=== PATIENT | male | born 1990 | race Caucasian/White ===

== ENCOUNTER 2017-10-24 17:47 | Emergency (ER) | payer OTHER ==
[2017-10-24 19:46] LABS: BASOPHILS # (AUTO) 0.1 10^3/uL (0.0-0.1); BASOPHILS % (AUTO) 1.1 %; EOSINOPHILS # (AUTO) 0.1 10^3/uL (0.0-0.7); EOSINOPHILS % (AUTO) 0.8 %; HGB - HEMOGLOBIN 14.8 g/dL (14.0-18.0); LYMPHOCYTES # (AUTO) 2.1 10^3/uL (1.5-3.5); LYMPHOCYTES % (AUTO) 24.9 %; MEAN CORPUSCULAR HEMOGLOBIN 29.9 pg (27.0-31.0); MEAN CORPUSCULAR HGB CONC 34.4 g/dL (32.0-36.0); MEAN CORPUSCULAR VOLUME 87.1 fL (80.0-94.0); MONOCYTES # (AUTO) 0.7 10^3/uL (0.0-1.0); NEUTROPHILS # (AUTO) 5.5 10^3/uL (1.5-6.6); NEUTROPHILS % (AUTO) 65.2 %; RED BLOOD COUNT 4.94 10^6/uL (4.70-6.10); RED CELL DISTRIBUTION WIDTH 12.8 % (12.0-15.0); WHITE BLOOD COUNT 8.4 x10^3/uL (4.8-10.8)
--- NOTE | 2017-10-24 19:48 | ED Physician Documentation ---
PD HPI CHEST PAIN - Stated complaint Stated Complaint: CHEST PX/NUMBNESS - Chief complaint Chief Complaint: Cardiac - History obtained from History obtained from: Patient - History of Present Illness Timing - onset: How many hours ago (2), Today Timing - onset during: Light activity. No: Exertion, Emotional event Timing - duration: Hours (2) Timing - details: Abrupt onset, Still present Quality: Aching, Sharp, Pain Location: Left chest Radiation: No: Neck, Back, Left upper extremity Improved by: No: Rest Worsened by: Inspiration, Movement. No: Palpation, Position Associated symptoms: Shortness of air. No: Nausea, Feeling faint / dizzy, General Weakness, Palpitations, Cough Similar symptoms before: No diagnosis (has not had pains there but has had similar at lower rib margin in the past, Dx as cartilage inflammation.) Recently seen: Not recently seen Review of Systems Constitutional: denies: Fever, Chills Nose: denies: Rhinorrhea / runny nose, Congestion Throat: denies: Sore throat Cardiac: denies: Palpitations, Pedal edema, Calf pain Respiratory: denies: Dyspnea, Cough, Wheezing GI: denies: Abdominal Pain, Nausea, Vomiting, Diarrhea Skin: denies: Rash, Lesions PD PAST MEDICAL HISTORY - Past Medical History Past Medical History: Yes Psych: Depression, Anxiety - Past Surgical History Past Surgical History: No - Present Medications Home Medications: Ambulatory Orders Medication Instructions Recorded Confirmed No Known Home Medications [No 10/24/17 10/24/17 Known Home Medications] - Allergies Allergies/Adverse Reactions: Allergies Allergy/AdvReac Type Severity Reaction Status Date / Time No Known Drug Allergies Allergy Verified 10/24/17 18:06 - Social History Does the pt smoke?: Yes Smoking Status: Current every day smoker - Family History Family history: reports: Non contributory. denies: CAD, Aortic aneursym, Aortic dissection PD ED PE NORMAL - Vitals Vital signs reviewed: Yes - General General: Alert and oriented X 3, No acute distress, Well developed/nourished - HEENT HEENT: Pharynx benign - Neck Neck: Supple, no meningeal sign, No adenopathy - Cardiac Cardiac: RRR, No murmur - Respiratory Respiratory: Clear bilaterally, Other (some chest wall tenderness left sternal border upper aspect. No rash nor sores. ) - Abdomen Abdomen: Soft, Non tender - Back Back: No CVA TTP - Derm Derm: Normal color, Warm and dry, No rash - Extremities Extremities: No deformity, No tenderness to palpate, No edema, No calf tenderness / cord - Neuro Neuro: Alert and oriented X 3, No motor deficit, Normal speech Results - Vitals Vitals: Oxygen O2 Source Room air - EKG (time done) 17:53 Rate: Rate (enter#) (76) Rhythm: NSR Hulbert: Normal Intervals: Normal MI QRS: Normal Ischemia: Normal ST segments. No: ST elevation c/w ischemia, ST depression - Labs Labs: Laboratory Tests 10/24/17 10/24/17 10/24/17 19:28 19:28 19:28 WBC 8.4 RBC 4.94 Hgb 14.8 Hct 43.0 MCV 87.1 MCH 29.9 MCHC 34.4 RDW 12.8 Plt Count 237 MPV 8.6 Neut # 5.5 Lymph # 2.1 Fleming # 0.7 Eos # 0.1 Baso # 0.1 Absolute Nucleated RBC 0.01 Nucleated RBC % 0.1 Manual Slide Review Indicated Platelet Estimate NORMAL (130-450,000) Platelet Morphology 1+ LARGE PLATELETS RBC Morph Micro Appear NORMAL APPEARANCE Sodium 135 Potassium 3.6 Chloride 101 Carbon Dioxide 26 Anion Gap 8.0 BUN 12 Creatinine 1.1 Estimated GFR (MDRD) 80 L Glucose 100 Calcium 9.1 Total Bilirubin 0.4 AST 32 ALT 49 Alkaline Phosphatase 81 Troponin I < 0.04 Total Protein 7.6 Albumin 4.6 Globulin 3.0 Albumin/Globulin Ratio 1.5 Lipase 15 L PD MEDICAL DECISION MAKING - ED course Complexity details: considered differential (has some tenderness of chest wall and ECG/CXR/labs are good. Given demographics, unlikely to be vascular. Presume some costochondritis. ), d/w patient Departure - Departure Disposition: 01 Home, Self Care Clinical Impression: Left sided chest pain Condition: Stable Record reviewed to determine appropriate education?: Yes Instructions: ED Chest Pain Atypical Unkn Cause, ED Chest Pain Costochondritis Comments: Drink lots of fluids. Ibuprofen or naproxen twice daily if needed for the pains presuming some inflammation in the chest wall and cartilage. Recheck if other symptoms develop as well. Your EKG, chest x-ray, blood tests are appearing okay. Discharge Date/Time: 10/24/17 20:17
[2017-10-24 19:52] LABS: ALBUMIN 4.6 g/dL (3.2-5.5); BILIRUBIN,TOTAL 0.4 mg/dL (0.2-1.0); CALCIUM 9.1 mg/dL (8.5-10.3); CREATININE 1.1 mg/dL (0.6-1.2); TOTAL PROTEIN 7.6 g/dL (6.7-8.2)
[2017-10-24 19:53] LABS: ALBUMIN/GLOBULIN RATIO 1.5 (1.0-2.2)
[2017-10-24 20:19] VITALS: BP 138/84
[2017-10-24 20:32] LABS: MEAN PLATELET VOLUME 8.6 fL (7.4-11.4); PLATELET ESTIMATE, MANUAL NORMAL (130-450,000) (NORMAL); PLATELET MORPHOLOGY 1+ LARGE PLATELETS (NORMAL); PLT - PLATELET COUNT 237 10^3/uL (130-450); RBC MORPHOLOGY (MULTIPLE) NORMAL APPEARANCE (NORMAL)
--- NOTE | 2017-10-24 20:50 | XRAY Report ---
EXAM: CHEST RADIOGRAPHY EXAM DATE: 10/24/2017 07:26 PM. CLINICAL HISTORY: Chest pain. COMPARISON: 01/17/2006. TECHNIQUE: 2 views. FINDINGS: Lungs/Pleura: Grossly clear lungs. A monitoring lead projects over the upper right chest. No pleural effusion or pneumothorax. Mediastinum: Heart and mediastinal contours are unremarkable. Other: No fracture evident. IMPRESSION: 1. No acute cardiopulmonary findings identified. [facility] Referring Provider Line: [phone] SITE ID: [id number]
--- NOTE | 2017-10-24 20:50 | XRAY Preliminary Report ---
Exam: XR CHEST 2 VIEW X-RAY IMPRESSION: 1. No acute cardiopulmonary findings identified. [facility] SITE ID: [id number]
== END 2017-10-24 20:17 | disposition home or self-care (01) ==
LOC: ED 17:47
DX: R07.9 Chest pain, unspecified (principal); F17.200 Nicotine dependence, unspecified, uncomplicated
CPT/HCPCS: 36415; 71046; 80053; 83690; 84484; 85025; 93005; 99283; 99284

== ENCOUNTER 2019-04-17 15:18 | Emergency (ER) | payer MEDICAID, OTHER ==
--- NOTE | 2019-04-17 17:20 | ED Physician Documentation ---
PD HPI HEENT - Stated complaint Stated Complaint: L EAR/MOUTH PX - Chief complaint Chief Complaint: Heent - History obtained from History obtained from: Patient - History of Present Illness Timing - onset: How many weeks ago (1) Timing - duration: Weeks (1) Timing - details: Gradual onset, Still present Location: Tooth Improves: Medication Associated symptoms: Congestion, Facial swelling Similar symptoms before: Has not had sx before Recently seen: Not recently seen - Additional information Additional information: Previously well 28-year-old male has developed a broken tooth on the left side of his face and he has had pain that is now increasing in the side of his face he has had some swelling to the face and he has pain extending into his left ear.He does not have any significant cough and he is not complaining of exquisite pain or pain associated exposure to hot and cold. Review of Systems Constitutional: denies: Fever Eyes: denies: Decreased vision Ears: denies: Ear pain Nose: reports: Congestion, Sinus pressure / pain. denies: Rhinorrhea / runny nose Throat: reports: Dental pain / toothache, Sore throat Cardiac: denies: Chest pain / pressure, Palpitations Respiratory: denies: Dyspnea, Cough PD PAST MEDICAL HISTORY - Past Medical History Psych: Depression, Anxiety - Past Surgical History Past Surgical History: No - Present Medications Home Medications: Ambulatory Orders Medication Instructions Recorded Confirmed Amoxicillin 875 mg PO BID #14 tablet 04/17/19 - Allergies Allergies/Adverse Reactions: Allergies Allergy/AdvReac Type Severity Reaction Status Date / Time No Known Drug Allergies Allergy Verified 04/17/19 15:26 - Social History Does the pt smoke?: Yes Smoking Status: Current every day smoker Does the pt drink ETOH?: Yes ETOH Use: Beer Does the pt have substance abuse?: No - Immunizations Immunizations are current?: Yes - POLST Patient has POLST: No PD ED PE NORMAL - Vitals Vital signs reviewed: Yes (hypertensive ) - General General: No acute distress, Well developed/nourished - HEENT HEENT: Atraumatic, PERRL, EOMI, Ears normal, Moist mucous membranes, Pharynx benign, Other (There is a broken tooth to the left upper molar buccal surface with exposure of prior dental work. There is mild facial tenderness and swelling to the left side of the face. ) - Neck Neck: Supple, no meningeal sign, No bony TTP - Respiratory Respiratory: No respiratory distress - Derm Derm: Normal color, Warm and dry, No rash - Extremities Extremities: No deformity, No edema - Neuro Neuro: Alert and oriented X 3, tankman 2-12 intact, No motor deficit, No sensory deficit, Normal speech Eye Opening: Spontaneous Motor: Obeys Commands Verbal: Oriented GCS Score: 15 - Psych Psych: Normal mood, Normal affect Results - Vitals Vitals: Vital Signs - 24 hr 04/17/19 15:26 Temperature 36.7 C Heart Rate 80 Respiratory 17 Rate Blood Pressure 169/90 H O2 Saturation 99 Oxygen O2 Source Room air PD MEDICAL DECISION MAKING - ED course Complexity details: reviewed results, re-evaluated patient, considered differential, d/w patient ED course: 20-year-old male with a broken tooth that appears infected has It applied to the buccal surface of the tooth and we will place on some antibiotic. He does not feel he woke require any pain medication. Departure - Departure Disposition: 01 Home, Self Care Clinical Impression: Dental abscess Condition: Stable Instructions: ED Abscess Dental Follow-Up: [facility] [place] [Provider Group] Prescriptions: Amoxicillin 875 mg PO BID #14 tablet
[2019-04-17 17:36] VITALS: BP 171/90
== END 2019-04-17 17:35 | disposition home or self-care (01) ==
LOC: ED 15:18
DX: K04.7 Periapical abscess without sinus (principal); S02.5XXA Fracture of tooth (traumatic), initial encounter for closed fracture; X58.XXXA Exposure to other specified factors, initial encounter; F17.200 Nicotine dependence, unspecified, uncomplicated
CPT/HCPCS: 99282; 99284

== ENCOUNTER 2019-08-05 13:27 | Emergency (ER) | payer MEDICAID ==
[2019-08-05] MEDS ORDERED: TETANUS/DIPHTHERIA/PERTUSSIS 0.5 ML SYRINGE IM ONE (13:56)
--- NOTE | 2019-08-05 14:40 | ED Physician Documentation ---
PD HPI UPPER EXT INJURY - Stated complaint Stated Complaint: LT FINGER LAC - Chief complaint Chief Complaint: Laceration - History obtained from History obtained from: Patient - History of Present Illness Location: Left, Finger Type of injury: Laceration Where injury occurred: Home Timing - onset: Last night Timing - details: Abrupt onset Improved by: Dressing Similar symptoms before: Has not had sx before Recently seen: Not recently seen - Additonal information Additional information: There is a 29-year-old who got a new set of knives and was cutting something for dinner last night when he cut the left index finger. This was around 830 last night he put some hydrogen peroxide on it and then a bandage and when he took the bandage off this morning after sleeping all night it was "gushing blood". Seems to be controlled now with pressure. His last tetanus vaccine was greater than 5 years. He is right-handed. He works and a factory. Review of Systems Skin: reports: Laceration (s) Endocrine: denies: Easy bruising / bleeding PD PAST MEDICAL HISTORY - Past Medical History Psych: Depression, Anxiety - Past Surgical History Past Surgical History: No Ortho: Other - Present Medications Home Medications: Ambulatory Orders Medication Instructions Recorded Confirmed Amoxicillin 875 mg PO BID #14 tablet 04/17/19 - Allergies Allergies/Adverse Reactions: Allergies Allergy/AdvReac Type Severity Reaction Status Date / Time No Known Drug Allergies Allergy Verified 04/17/19 15:26 - Social History Does the pt smoke?: Yes Smoking Status: Current every day smoker Does the pt drink ETOH?: Yes Does the pt have substance abuse?: No - Immunizations Immunizations are current?: Yes - POLST Patient has POLST: No PD ED PE NORMAL - Vitals Vital signs reviewed: Yes - General General: Alert and oriented X 3, No acute distress, Well developed/nourished - HEENT HEENT: Atraumatic - Derm Derm: Other (There is a curvilinear laceration to the radial aspect of the left index finger pad. There is currently no active bleeding. The laceration measures approximately three-quarter to 1 cm in length.) - Neuro Neuro: Alert and oriented X 3, No motor deficit, No sensory deficit Results - Vitals Vitals: Vital Signs - 24 hr 08/05/19 08/05/19 13:36 15:00 Temperature 36.4 C L 36.7 C Heart Rate 80 73 Respiratory 14 16 Rate Blood Pressure 143/95 H 142/83 H O2 Saturation 97 96 Oxygen O2 Source Room air PD MEDICAL DECISION MAKING - ED course Complexity details: d/w patient ED course: Patient was updated on tetanus vaccine. We discussed suturing this closed with a couple of stitches to keep it from further bleeding versus management with a tube gauze dressing and keeping it covered while it continues to heal. Risk and benefits of each approach were discussed and he is elected to treat it co nservatively with no sutures. Departure - Departure Disposition: 01 Home, Self Care Clinical Impression: Laceration Condition: Good Instructions: ED Laceration Old Not Sutr Follow-Up: [facility] [Provider Group] Comments: Keep our bandage on keep it clean and dry if possible for 48 hours. When you remove it you can gently run it under water if it is stuck to the laceration. At that point you can gently wash your hands with soap and water but keep the wound covered as it continues to heal. May apply a little bit of superglue after the bandages removed if desired. Discharge Date/Time: 08/05/19 15:01
[2019-08-05] MEDS ORDERED: BACITRACIN ZINC OINT 1 PACKET TOP STA (14:41)
[2019-08-05] MEDS ORDERED: BACITRACIN ZINC OINT 1 PACKET TOP ONE (14:44)
[2019-08-05 15:00] VITALS: BP 142/83
== END 2019-08-05 15:01 | disposition home or self-care (01) ==
LOC: ED 13:27
DX: S61.211A Laceration without foreign body of left index finger without damage to nail, initial encounter (principal); W26.0XXA Contact with knife, initial encounter; Y93.G3 Activity, cooking and baking; Y92.009 Unspecified place in unspecified non-institutional (private) residence as the place of occurrence of the external cause; Z23 Encounter for immunization; F17.200 Nicotine dependence, unspecified, uncomplicated
CPT/HCPCS: 90471; 90715; 99282; 99283; A9270

== ENCOUNTER 2022-10-20 16:03 | Emergency (ER) | payer MEDICAID, OTHER ==
[2022-10-20 18:29] LABS: BILIRUBIN,URINE NEGATIVE (NEGATIVE); GLUCOSE, URINE (UA) NEGATIVE (NEGATIVE); KETONES,URINE (UA) NEGATIVE (NEGATIVE); LEUKOCYTE ESTERASE, URINE NEGATIVE (NEGATIVE); NITRITE,URINE NEGATIVE (NEGATIVE); OCCULT BLOOD,URINE NEGATIVE (NEGATIVE); PH,URINE 6.5 PH (5.0-7.5); PROTEIN,URINE NEGATIVE (NEGATIVE); UROBILINOGEN,URINE 0.2 (NORMAL) E.U./dL (NORMAL)
[2022-10-20 18:32] LABS: CLARITY,URINE CLEAR (CLEAR)
--- NOTE | 2022-10-20 18:33 | ED Physician Documentation ---
History of Present Illness - Stated complaint Stated Complaint: MALE - Chief complaint Chief Complaint: Back Pain - Additonal information Additional information: 32-year-old male presents emergency department for evaluation of right low back pain and urinary urgency. Symptoms began yesterday evening. He states that since they have started he feels like he has to urinate on average of every 1-2 hours. He does feel like his bladder fully empties and it is not painful to urinate but shortly thereafter he begins to feel the need to void. Denies hematuria. No history of similar. No falls or trauma. Denies history of diabetes. No fever. No sexual activity for at least 1 year. No penile discharge. He denies pain in his scrotum or testes. Review of Systems Constitutional: reports: Reviewed and negative Cardiac: reports: Reviewed and negative Respiratory: denies: Dyspnea, Cough, Hemoptysis, Wheezing, Reviewed and negative, Other GI: reports: Reviewed and negative : reports: Frequency. denies: Testicular pain PD PAST MEDICAL HISTORY - Past Medical History Psych: Depression, Anxiety - Past Surgical History Past Surgical History: No Ortho: Other - Present Medications Home Medications: Ambulatory Orders Medication Instructions Recorded Confirmed No Known Home Medications 10/20/22 10/20/22 - Allergies Allergies/Adverse Reactions: Allergies Allergy/AdvReac Type Severity Reaction Status Date / Time No Known Drug Allergies Allergy Verified 10/20/22 16:27 - Social History Does the pt smoke?: Yes Smoking Status: Current every day smoker Does the pt drink ETOH?: Yes Does the pt have substance abuse?: No - Immunizations Immunizations are current?: Yes - POLST Patient has POLST: No PD ED PE NORMAL - General General: Alert and oriented X 3, No acute distress, Well developed/nourished - HEENT HEENT: Atraumatic, Moist mucous membranes - Neck Neck: Supple, no meningeal sign, No adenopathy - Cardiac Cardiac: RRR, No murmur - Respiratory Respiratory: No respiratory distress, Clear bilaterally - Abdomen Abdomen: Normal bowel sounds, Soft - Male Male : Other (no scrotal or testicular pain) - Back Back: No CVA TTP, No spinal TTP Results - Vitals Vitals: Vital Signs - 24 hr 10/20/22 16:21 Temperature 36.9 C Heart Rate 80 Respiratory 17 Rate Blood Pressure 153/83 H O2 Saturation 98 Oxygen O2 Source Room air - Labs Labs: Laboratory Tests 10/20/22 10/20/22 10/20/22 16:40 18:40 18:40 WBC 6.5 RBC 5.07 Hgb 15.5 Hct 45.4 MCV 89.5 MCH 30.6 MCHC 34.1 RDW 11.9 L Plt Count 336 MPV 9.4 Neut # (Auto) 3.9 Lymph # (Auto) 2.0 Dickens # (Auto) 0.5 Eos # (Auto) 0.0 Baso # (Auto) 0.0 Absolute Nucleated RBC 0.00 Nucleated RBC % 0.0 Sodium 138 Potassium 3.9 Chloride 104 Carbon Dioxide 27 Anion Gap 7.0 BUN 10 Creatinine 0.9 Estimated GFR (MDRD) 98 Glucose 83 Calcium 9.1 Total Bilirubin 0.5 AST 25 ALT 44 Alkaline Phosphatase 69 Total Protein 7.8 Albumin 4.5 Globulin 3.3 Albumin/Globulin Ratio 1.4 Lipase 33 Urine Color YELLOW Urine Clarity CLEAR Urine pH 6.5 Ur Specific Lyons 1.010 Urine Protein NEGATIVE Urine Glucose (UA) NEGATIVE Urine Ketones NEGATIVE Urine Occult Blood NEGATIVE Urine Nitrite NEGATIVE Urine Bilirubin NEGATIVE Urine Urobilinogen 0.2 (NORMAL) Ur Leukocyte Esterase NEGATIVE Ur Microscopic Review NOT INDICATED Urine Culture Comments NOT INDICATED PD Medical Decision Making - ED course Complexity details: reviewed results, re-evaluated patient, considered differential, d/w patient ED course: 32-year-old male presents to the emergency department For acute urinary urgency that began yesterday. He also had some associated right-sided low back pain. Denies hematuria. Denies dysuria. No history of similar. No history of diabetes. Limited caffeine and energy drinks. Denies history of prostate problems, rectal pain or rectal sex. On exam no back pain was elicited. There was some mild right flank abdominal tenderness. Urinalysis reveals no hematuria or findings of infection. CBC and electrolytes per my interpretation were also grossly unremarkable. Clinically my suspicion for urinary urgency was focused to evaluate for ureter or bladder stones that could cause similar symptoms. Thus I did do a CT of the abdomen pelvis that showed no acute findings. I am I discussed this with the patient. Given that we have no findings suggest ureterolithiasis, hydronephrosis, urinary tract infection or stones within the bladder I feel that he is safe for discharge home with no further treatment though I am recommending he follow closely with his primary care doctor to have possible prostate evaluated. He will return to the ER for worsening symptoms Departure - Departure Disposition: 01 Home, Self Care Clinical Impression: Urinary urgency Condition: Stable Record reviewed to determine appropriate education?: Yes Comments: Paul you came to the emergency department because you found that over the last 24 hours you are having urinary urgency meaning you feel like you have to frequently urinate. Your urine today shows no signs of infection or blood. Your CBC and blood chemistry are all essentially normal. We did do a CT of the abdomen. I was looking for kidney ureter or bladder stones that could cause the symptoms and that imaging is negative. Sometimes prostate concerns can cause urinary urgency in men. I would recommend you to follow closely with your primary care doctor. If your symptoms are acutely wor sening, you develop fevers have pain when you urinate we should reevaluate you.
[2022-10-20 18:44] LABS: BASOPHILS % (AUTO) 0.6 %; EOSINOPHILS % (AUTO) 0.5 %; HCT - HEMATOCRIT 45.4 % (42.0-52.0); HGB - HEMOGLOBIN 15.5 g/dL (14.0-18.0); LYMPHOCYTES % (AUTO) 30.4 %; MEAN CORPUSCULAR HEMOGLOBIN 30.6 pg (27.0-31.0); MEAN CORPUSCULAR HGB CONC 34.1 g/dL (32.0-36.0); MEAN CORPUSCULAR VOLUME 89.5 fL (80.0-94.0); MEAN PLATELET VOLUME 9.4 fL (7.4-11.4); MONOCYTES # (AUTO) 0.5 10^3/uL (0.0-1.0); MONOCYTES % (AUTO) 8.2 %; NEUTROPHILS # (AUTO) 3.9 10^3/uL (1.5-6.6); PLT - PLATELET COUNT 336 10^3/uL (130-450); RED BLOOD COUNT 5.07 10^6/uL (4.70-6.10); RED CELL DISTRIBUTION WIDTH 11.9 % (12.0-15.0); WHITE BLOOD COUNT 6.5 x10^3/uL (4.8-10.8)
[2022-10-20 18:57] LABS: ALBUMIN 4.5 g/dL (3.2-5.5); ALBUMIN/GLOBULIN RATIO 1.4 (1.0-2.2); BILIRUBIN,TOTAL 0.5 mg/dL (0.2-1.0); CALCIUM 9.1 mg/dL (8.5-10.3); CREATININE 0.9 mg/dL (0.6-1.2); POTASSIUM 3.9 mmol/L (3.5-5.0); TOTAL PROTEIN 7.8 g/dL (6.7-8.2)
[2022-10-20 20:33] VITALS: BP 137/84
--- NOTE | 2022-10-21 07:08 | CT Report ---
PROCEDURE: ABDOMEN/PELVIS WO INDICATIONS: urinary urgency; ? renal colic TECHNIQUE: Noncontrast 5 mm thick sections acquired from the diaphragms to the symphysis. 5 mm coronal and sagi ttal reformats were then performed. For radiation dose reduction, the following was used: automated exposure control, adjustment of mA and/or kV according to patient size. COMPARISON: None. FINDINGS: Image quality: Excellent. Lung bases and heart: Unremarkable. Liver: Unremarkable. Gallbladder and biliary tree: Spleen: Unremarkable. Pancreas: Unremarkable. Adrenals: Unremarkable. Kidneys and ureters: Unremarkable. No evidence for hydronephrosis. No renal stones. Bilateral ureters are normal in course and caliber. Bowel and peritoneum: No bowel distension. No pathologic free fluid. Normal appendix. Lymph nodes: No central or retroperitoneal adenopathy. Vessels: Unremarkable. PELVIS Reproductive organs: Unremarkable. Bladder: Unremarkable. No urinary bladder stone seen. No perivesicular inflammation. Lymph nodes: Unremarkable. Bones: No aggressive osseous abnormality. Other: None. IMPRESSION: CT abdomen and pelvis without acute abnormalities. No evidence for urolithiasis or obstructive uropathy. Normal appendix. Reviewed by: Matthew Rob MD on 10/20/2022 7:50 PM PDT Approved by: Matthew Rob MD on 10/20/2022 7:50 PM PDT Station ID: [id number]
== END 2022-10-20 20:33 | disposition home or self-care (01) ==
LOC: ED 16:03
DX: R39.15 Urgency of urination (principal); F17.200 Nicotine dependence, unspecified, uncomplicated
CPT/HCPCS: 36415; 80053; 81001; 81003; 83690; 85025; 87086; 99283; 99284

== ENCOUNTER 2023-06-06 10:56 | Emergency (ER) | payer SELFPAY ==
--- NOTE | 2023-06-06 11:10 | ED Physician Documentation ---
PD HPI NVD - Stated complaint Stated Complaint: VOMITING/DIARRHEA - Chief complaint Chief Complaint: Abd Pain - History obtained from History obtained from: Patient - History of Present Illness Timing - onset: Today (about 4 am, awoke with brisk onset of nausea vomitng and diarrhea. Has persisted with all the past hours. Still with nausea but no emesis for an hour or so.), Last night Timing - duration: Hours (7) Timing - details: Abrupt onset, Still present Associated symptoms: Abdominal pain (intermittent cramping lower to mid abd prior to BMs, not consistently.), Loss of appetite. No: Fever Contributing factors: No: Sick contact, Bad food, Travel, Recent antibiotics Improved by: No: Vomiting Worsened by: Eating Similar symptoms before: Has not had sx before Review of Systems Constitutional: reports: Myalgias. denies: Fever, Chills Nose: denies: Rhinorrhea / runny nose, Congestion Throat: denies: Sore throat Respiratory: denies: Cough GI: reports: Nausea, Vomiting, Diarrhea. denies: Hematemesis, Bloody / black stool Neurologic: reports: Generalized weakness. denies: Near syncope, Altered mental status, Headache PD PAST MEDICAL HISTORY - Past Medical History Cardiovascular: None GI: None Psych: Depression, Anxiety - Past Surgical History Past Surgical History: Yes Ortho: Other - Present Medications Home Medications: Ambulatory Orders Medication Instructions Recorded Confirmed Diphenoxylate/Atropine [Lomotil] 1 each PO QID PRN #12 tablet 06/06/23 Ondansetron Odt [Zofran] 4 mg TL Q6H PRN #10 tablet 06/06/23 - Allergies Allergies/Adverse Reactions: Allergies Allergy/AdvReac Type Severity Reaction Status Date / Time No Known Drug Allergies Allergy Verified 06/06/23 11:05 - Social History Does the pt smoke?: Yes Smoking Status: Current every day smoker Does the pt drink ETOH?: Yes Does the pt have substance abuse?: No - Immunizations Immunizations are current?: Yes - POLST Patient has POLST: No PD ED PE NORMAL - Vitals Vital signs reviewed: Yes - General General: Alert and oriented X 3, No acute distress, Well developed/nourished - Neck Neck: Supple, no meningeal sign, No adenopathy - Cardiac Cardiac: RRR, No murmur - Respiratory Respiratory: Clear bilaterally - Abdomen Abdomen: Normal bowel sounds, Soft, Non tender, Non distended, No organomegaly - Derm Derm: Normal color, Warm and dry - Extremities Extremities: Normal ROM s pain Results - Vitals Vitals: Vital Signs - 24 hr 06/06/23 06/06/23 06/06/23 11:01 12:51 13:22 Temperature 36.5 C 99.9 C H Heart Rate 100 78 88 Respiratory 16 17 15 Rate Blood Pressure 156/98 H 145/81 H 139/84 H O2 Saturation 98 99 99 Oxygen O2 Source Room air PD Medical Decision Making - ED course Complexity details: re-evaluated patient (he is feeling better after Zofran and time. Taking water okay. Shared decision no testing needed. ), considered differential (abrupt NVD this morning. Okay yesterday. ikely food related or viral GE. Abd not tender focally nor at all right now. Does not seem like GB/appendix/etc. ), d/w patient Departure - Departure Disposition: 01 Home, Self Care Clinical Impression: Nausea vomiting and diarrhea Condition: Stable Instructions: ED Diet Vomiting Diarrhea Prescriptions: Diphenoxylate/Atropine [Lomotil] 1 each PO QID PRN #12 tablet PRN Reason: Diarrhea Ondansetron Odt [Zofran] 4 mg TL Q6H PRN #10 tablet PRN Reason: Nausea / Vomiting Comments: Small frequent fluids and bland food initially and progressed to normal diet as tolerated through the day and into tomorrow. This sounds likely to be a viral stomach flu or food related. Typically this will last a day or 2 and then improved. Sometimes they last longer. If you develop any localized abdominal pain that persists, high fevers, bloody stool, repetitive vomiting despite medicine or other concerns and return. Off work today. Ondansetron every 4-6 hours if needed for nausea and Lomotil if needed for diarrhea. I sent your prescriptions to your preferred pharmacy. I would anticipate improvement over the next 2 to 3 days. Forms: PCP List, Activity restrictions Discharge Date/Time: 06/06/23 13:23
[2023-06-06] MEDS ORDERED: ONDANSETRON ODT 4 MG TABLET TL STA (11:25)
[2023-06-06] MEDS ORDERED: DIPHENOX/ATROPINE 2.5/0.025 MG TABLET PO STA (11:26)
[2023-06-06 12:56] VITALS: O2SAT 99
[2023-06-06 13:30] VITALS: BP 139/84
== END 2023-06-06 13:23 | disposition home or self-care (01) ==
LOC: ED 10:56
DX: R11.2 Nausea with vomiting, unspecified (principal); R19.7 Diarrhea, unspecified; F17.200 Nicotine dependence, unspecified, uncomplicated
CPT/HCPCS: 99282; 99283; A9270; Q0162